=== PATIENT | female | born 1945 | race Caucasian/White ===

== ENCOUNTER 2017-11-26 01:08 | Day surgery (SDC) | payer BC, OTHER ==
[~2017-11-26] VITALS: Ht 166.4 cm; Wt 102.1 kg
[~2017-11-26 01:08] MED LIST: ACYC-58 PO; ALB17R INH; ALBU8.5H IH; ASP325 PO; CALC-515 PO; CALC200 PO; CHOL10005 PO; CHOL200074 PO; DIPH-740 PO; FLUT1DIS27 IH; FLUT1DIS28 IH; HYZAAR; IBUP200C71 PO; KET10 PO; LORA-630 PO; LOSA-51 PO; MULT1CAP41 PO; OMEG500C7 PO; OMEP-114 PO; PER PO; ZOL5 PO
[2017-11-26 06:33] VITALS: BP 135/91
[2017-11-26] MEDS ORDERED: fentaNYL CITR 250 MCG/5 ML AMP ONE (06:55)
[2017-11-26] MEDS ORDERED: MIDAZOLAM 1 MG/1 ML 10 ML ONE (06:57)
[2017-11-26] MEDS ORDERED: NORMOSOL R SOLN(*) 1000 ML BAG 1,000 ML IV PRN (07:00)
[2017-11-26] MEDS ORDERED: LIDOCAINE/SOD BICARB 8.4% SYR ID ONE (07:00)
[2017-11-26 08:31] VITALS: BP 117/75
--- NOTE | 2017-11-26 08:51 | RADIOLOGY IMAGING REPORT ---
FACILITY: [facility] PATIENT NAME: Verna Silveira : 1945 MR: [id number] V: [id number] EXAM DATE: ORDERING PHYSICIAN: TAVO SHELTON TECHNOLOGIST: Location: [facility] - [place] Patient: Verna Silveira : 1945 Visit/Account:[id number] Date of Sevice: 11/26/2017 EXAMINATION: L SPINE W/O CONTRAST INDICATION: Low back pain COMPARISON: April 17, 2015 TECHNIQUE: Multiplane MR imaging was performed through the lumbar spine without contrast. FINDINGS: Vertebral bodies: Normal Conus position/signal: Normal Marrow signal: Minimal degenerative edema surrounds the T11-12 disc space. Minimal degenerative edema along the inferior L3 endplate. Extraspinal structures including psoas muscles/paraspinal soft tissues: Normal L1-2: Normal L2-3: Minimal right posterior disc protrusion is unchanged in size. No canal or lateral recess narrow ing. Mild unchanged right foraminal narrowing. Small unchanged disc protrusion in the inferior aspect of the left foramen results in no left foraminal narrowing. L3-4: Mild unchanged right foraminal narrowing. Mild unchanged left foraminal narrowing, otherwise no rmal. L4-5: Unchanged grade 1 anterolisthesis of L4 on L5. Minimal unchanged disc bulge. Moderate to severe unchanged facet arthropathy. Unchanged ligamentum flavum thickening. Unchanged bilateral lateral rec ess narrowing and unchanged mild canal narrowing. Moderate unchanged left foraminal narrowing, modera te unchanged right foraminal narrowing. L5-S1: Small unchanged disc protrusion. Unchanged posterior disc annular fissure. Moderate unchanged right foraminal narrowing. Severe unchanged left foraminal narrowing. Mild unchanged disc space degen eration. IMPRESSION: 1. No change compared to prior. 2. Unchanged grade 1 anterolisthesis of L4 on L5 secondary to moderate to severe facet arthropathy. 3. Multilevel foraminal narrowing similar to prior, see level by level comments above. 4. Unchanged L4-5 bilateral lateral recess narrowing and mild canal narrowing secondary to the conste llation of findings described above. Report Dictated By: Wali Sharif MD at 11/26/2017 8:40 AM Report E-Signed By: Wali Sharif MD at 11/26/2017 8:48 AM WSN:[id number]
[2017-11-26] MEDS ORDERED: ALBUTEROL/IPRATROPIUM 3 ML NEB ONE (08:56)
[2017-11-26 09:23] VITALS: BP 127/75
[2017-11-26 09:27] VITALS: BP 123/84
== END 2017-11-26 10:00 | disposition home or self-care (01) ==
LOC: OR 01:08
PROVIDERS: ATTEND Orthopaedic Surgery
DX: M48.061 Spinal stenosis, lumbar region without neurogenic claudication (principal)
CPT/HCPCS: 72148; 94640; 94667; J2250; J3010; J7620; 99281

== ENCOUNTER 2018-08-24 16:49 | Emergency (ER) | payer BC ==
[2018-06-17 11:27] VITALS: Wt 95.3 kg
[~2018-08-24 16:49] MED LIST changes: +IBUP-136 PO; -IBUP200C71 PO
--- NOTE | 2018-08-24 16:53 | ER Report ---
History and Physical Time Seen By MD: 16:52 HPI/ROS CHIEF COMPLAINT: Nausea, diarrhea. HISTORY OF PRESENT ILLNESS: This is a 73-year-old female who presents to emergency department for nausea and diarrhea. Patient states that [place] she had aches and chills, follow-up with her primary care provider, was noted to have a urinary tract infection, was placed on cephalexin, has been taking her medications since, then last night developed nausea and diffuse diarrhea, patient states that she's had persistent diarrhea since, small amount of bright red blood noted on the toilet paper, she states she does have a history of hemorrhoids. No dark or coffee ground appearing stool. She denies chest pain or shortness of breath. No rashes, denies sore throat. REVIEW OF SYSTEMS: Constitutional: As above. Eyes: No discharge. ENT: No sore throat. Cardiovascular: No chest pain, no palpitations. Respiratory: No cough, no shortness of breath. Gastrointestinal: As above. Genitourinary: As above. Musculoskeletal: No back pain. Skin: No rashes. Neurological: No headache. Allergies: Uncoded Allergies: SULFA (Allergy, Intermediate, 06/16/18) Home Meds Active Scripts Promethazine Hcl (PROMETHAZINE HCL) 25 Mg Tablet, 25 MG PO Q8H PRN for NAUSEA/VOMITING, #12 TAB Prov:KATJA ESCAMILLA [facility]- 08/24/18 Ondansetron Hcl (ZOFRAN) 4 Mg Tablet, 4 MG PO Q4-6H PRN for prn, #20 TAB Prov:KATJA ESCAMILLA [facility]- 08/24/18 Reported Medications Cephalexin (KEFLEX) 250 Mg Capsule, 500 MG PO TID, CAPSULE 08/24/18 Calcium Carbonate (TUMS) 200 Mg Tab.chew, 200 MG PO PRN, TAB.CHEW 04/11/15 Ibuprofen (IBUPROFEN) 200 Mg Capsule, 2-3 CAP PO Q6H PRN for PAIN/HEADACHE, CAPSULE 04/11/15 Losartan/Hydrochlorothiazide (LOSARTAN-HCTZ 50-12.5 MG TAB) 1 Each Tablet, 0.5 TAB PO QDAY 05/14/14 Fluticasone/Salmeterol (ADVAIR 100-50 DISKUS) 1 Each Disk.w.dev, 1 EACH IH BID 05/14/14 Albuterol Sulfate 90 Mcg/Act (PROAIR HFA 90 MCG/ACT) 8.5 Gm Hfa.aer.ad, 2 PUFF IH BID PRN for SHORTNESS OF BREATH 05/14/14 Multivitamins W-Minerals (Multivitamin) 1 Cap Capsule, 1 CAP PO, 0 Refills 04/06/08 Zolpidem Tartrate (Ambien) 5 Mg Tab, 5 MG PO HS PRN for INSOMNIA, 0 Refills 04/06/08 Discontinued Reported Medications [place]-3 Fatty Acids (FISH OIL) 500 Mg Capsule, 500 MG PO DAILY, CAPSULE 05/14/14 Diphenhydramine Hcl (BENADRYL) 25 Mg Capsule, 25 MG PO BID, CAPSULE 05/14/14 Past Medical/Surgical History The patient has a past medical and surgical history of angina, irregular heartbeat during , hypertension, obstructive sleep apnea, asthma, GERD, metabolic, right shoulder pain, arthritis, broken toe, back pain, question tick extraction, wears glasses, , appendectomy, depression, anxiety, shoulder surgery, cataract surgery. Reviewed Nurses Notes: Yes Hx Smoking: Yes (SMOKED FOR 2 YEARS) Smoking Status: Former Smoker Exposure to Second Hand Smoke?: No Hx Substance Use Disorder: No Hx Alcohol Use: Yes Constitutional Vital Sign - Last 24 Hours 08/24/18 08/24/18 08/24/18 17:00 17:30 18:00 Pulse 99 89 90 Resp 15 12 B/P (MAP) 149/86 (107) 126/76 (93) 124/70 (88) Pulse Ox 93 93 93 Physical Exam General Appearance: The patient is alert, has no immediate need for airway protection and no signs of toxicity. Eyes: Pupils equal and round no pallor or injection. ENT, Mouth: Mucous membranes are moist. Respiratory: There are no retractions, lungs are clear to auscultation. Cardiovascular: Regular rate and rhythm, no murmurs, clicks or rubs. Gastrointestinal: Abdomen is soft and non tender, no masses, hyperactive bowel sounds. Neurological: Alert and oriented 4. Moving all extremities. Following all commands. No focal neuro deficits. Skin: Warm and dry, no rashes. Musculoskeletal: Neck is supple non tender. Extremities are nontender, nonswollen and have full range of motion. DIFFERENTIAL DIAGNOSIS: After history and physical exam differential diagnosis was considered for nausea and vomiting including but not limited to gastroenteritis, gastritis, appendicitis, and medication side effect. Medical Decision Making Data Points Result Diagram: 08/24/18 1708 08/24/18 1708 Laboratory Hematology Test 08/24/18 16:52 08/24/18 17:08 Urine Color Yellow Urine Clarity Slightly-cloudy Urine pH 5.0 pH (4.8-9.5) Urine Specific Watkins 1.025 Urine Protein Negative mg/dL (NEGATIVE) Urine Glucose (UA) Negative mg/dL (NEGATIVE) Urine Ketones Negative mg/dL (NEGATIVE) Urine Blood Small (NEGATIVE) Urine Nitrite Negative (NEGATIVE) Urine Bilirubin Negative (NEGATIVE) Urine Urobilinogen 2.0 mg/dL (0.2-1.9) Urine Leukocyte Esterase Moderate (NEGATIVE) Urine RBC 3 /HPF (0-2/HPF) Urine WBC 93 /HPF (0-5/HPF) Urine Squamous Epithelial Cells Many /LPF (</=FEW) Urine Renal Epithelial Cells Many /LPF (NONE-FEW) Urine Bacteria Negative /HPF (NONE-FEW) Urine Mucus Few /HPF (NONE-FEW) Red Blood Count 5.49 M/uL (4.17-5.56) Mean Corpuscular Volume 86.0 fL (80.0-96.0) Mean Corpuscular Hemoglobin 29.3 pg (26.0-33.0) Mean Corpuscular Hemoglobin Concent 34.0 g/dL (32.0-36.0) Red Cell Distribution Width 13.9 % (11.5-14.5) Mean Platelet Volume 8.6 fL (7.2-11.1) Neutrophils (%) (Auto) 70.4 % (39.4-72.5) Lymphocytes (%) (Auto) 18.1 % (17.6-49.6) Monocytes (%) (Auto) 7.8 % (4.1-12.4) Eosinophils (%) (Auto) 3.1 % (0.4-6.7) Basophils (%) (Auto) 0.6 % (0.3-1.4) Nucleated RBC Relative Count (auto) 0.2 /100WBC Neutrophils # (Auto) 3.7 K/uL (2.0-7.4) Lymphocytes # (Auto) 1.0 K/uL (1.3-3.6) Monocytes # (Auto) 0.4 K/uL (0.3-1.0) Eosinophils # (Auto) 0.2 K/uL (0.0-0.5) Basophils # (Auto) 0.0 K/uL (0.0-0.1) Nucleated RBC Absolute Count (auto) 0.01 K/uL Sodium Level 141 mmol/L (137-145) Potassium Level 3.4 mmol/L (3.5-5.0) Chloride Level 105 mmol/L (98-107) Carbon Dioxide Level 23 mmol/L (22-31) Blood Urea Nitrogen 15 mg/dl (7-18) Creatinine 0.70 mg/dl (0.52-1.04) Glomerular Filtration Rate Calc > 60.0 Random Glucose 110 mg/dl (75-110) Calcium Level 9.2 mg/dl (8.4-10.2) Total Bilirubin 1.0 mg/dl (0.2-1.3) Aspartate Amino Transf (AST/SGOT) 26 U/L (0-35) Alanine Aminotransferase (ALT/SGPT) 39 U/L (0-56) Alkaline Phosphatase 43 U/L (0-126) Total Protein 7.0 g/dl (6.3-8.2) Albumin 4.1 g/dl (3.5-5.0) Lipase 67 U/L (23-300) Chemistry Test 08/24/18 16:52 08/24/18 17:08 Urine Color Yellow Urine Clarity Slightly-cloudy Urine pH 5.0 pH (4.8-9.5) Urine Specific Watkins 1.025 Urine Protein Negative mg/dL (NEGATIVE) Urine Glucose (UA) Negative mg/dL (NEGATIVE) Urine Ketones Negative mg/dL (NEGATIVE) Urine Blood Small (NEGATIVE) Urine Nitrite Negative (NEGATIVE) Urine Bilirubin Negative (NEGATIVE) Urine Urobilinogen 2.0 mg/dL (0.2-1.9) Urine Leukocyte Esterase Moderate (NEGATIVE) Urine RBC 3 /HPF (0-2/HPF) Urine WBC 93 /HPF (0-5/HPF) Urine Squamous Epithelial Cells Many /LPF (</=FEW) Urine Renal Epithelial Cells Many /LPF (NONE-FEW) Urine Bacteria Negative /HPF (NONE-FEW) Urine Mucus Few /HPF (NONE-FEW) White Blood Count 5.3 k/uL (4.5-11.0) Red Blood Count 5.49 M/uL (4.17-5.56) Hemoglobin 16.1 g/dL (12.0-16.0) Hematocrit 47.2 % (34.0-47.0) Mean Corpuscular Volume 86.0 fL (80.0-96.0) Mean Corpuscular Hemoglobin 29.3 pg (26.0-33.0) Mean Corpuscular Hemoglobin Concent 34.0 g/dL (32.0-36.0) Red Cell Distribution Width 13.9 % (11.5-14.5) Platelet Count 156 K/uL (150-450) Mean Platelet Volume 8.6 fL (7.2-11.1) Neutrophils (%) (Auto) 70.4 % (39.4-72.5) Lymphocytes (%) (Auto) 18.1 % (17.6-49.6) Monocytes (%) (Auto) 7.8 % (4.1-12.4) Eosinophils (%) (Auto) 3.1 % (0.4-6.7) Basophils (%) (Auto) 0.6 % (0.3-1.4) Nucleated RBC Relative Count (auto) 0.2 /100WBC Neutrophils # (Auto) 3.7 K/uL (2.0-7.4) Lymphocytes # (Auto) 1.0 K/uL (1.3-3.6) Monocytes # (Auto) 0.4 K/uL (0.3-1.0) Eosinophils # (Auto) 0.2 K/uL (0.0-0.5) Basophils # (Auto) 0.0 K/uL (0.0-0.1) Nucleated RBC Absolute Count (auto) 0.01 K/uL Glomerular Filtration Rate Calc > 60.0 Calcium Level 9.2 mg/dl (8.4-10.2) Total Bilirubin 1.0 mg/dl (0.2-1.3) Aspartate Amino Transf (AST/SGOT) 26 U/L (0-35) Alanine Aminotransferase (ALT/SGPT) 39 U/L (0-56) Alkaline Phosphatase 43 U/L (0-126) Total Protein 7.0 g/dl (6.3-8.2) Albumin 4.1 g/dl (3.5-5.0) Lipase 67 U/L (23-300) Urinalysis Test 08/24/18 16:52 Urine Color Yellow Urine Clarity Slightly-cloudy Urine pH 5.0 pH (4.8-9.5) Urine Specific Watkins 1.025 Urine Protein Negative mg/dL (NEGATIVE) Urine Glucose (UA) Negative mg/dL (NEGATIVE) Urine Ketones Negative mg/dL (NEGATIVE) Urine Blood Small (NEGATIVE) Urine Nitrite Negative (NEGATIVE) Urine Bilirubin Negative (NEGATIVE) Urine Urobilinogen 2.0 mg/dL (0.2-1.9) Urine Leukocyte Esterase Moderate (NEGATIVE) Urine RBC 3 /HPF (0-2/HPF) Urine WBC 93 /HPF (0-5/HPF) Urine Squamous Epithelial Cells Many /LPF (</=FEW) Urine Renal Epithelial Cells Many /LPF (NONE-FEW) Urine Bacteria Negative /HPF (NONE-FEW) Urine Mucus Few /HPF (NONE-FEW) ED Course/Re-evaluation Clinical Indication for ER IV: Hydration, IV Access ED Course The patient was admitted to room. A history and physical obtained. Differential diagnoses were considered. An IV was turned. A CBC, CMP were obtained. A 1 L normal saline bolus was given, 2. 8 mg IV Zofran.CBC showing H&H 16.1 and 47.2 otherwise unremarkable, chemistry showing potassium 3.4, normal lipase, patient currently being treated for urinary tract infection, urine still consistent with a urinary tract infection. I reviewed the results with the patient's. Patient states she's feeling significantly better after the 2 L of saline and nausea medicine. Patient was sent home with a prescription for Zofran and Phenergan. She will continue taking the antibiotics for her urinary tract infection. She will follow-up with her primary care provider for reevaluation this week. Patient was agreeable with this plan of care and discharged home. We also discussed clear liquid diet and then progressing into a soft bland diet. Decision to Disposition Date: Aug 24, 2018 Decision to Disposition Time: 18:27 Depart Departure Latest Vital Signs Vital Signs Date Time Temp Pulse Resp B/P (MAP) Pulse Ox O2 Delivery O2 Flow Rate FiO2 08/24/18 18:00 90 12 124/70 (88) 93 Impression: Primary Impression: Nausea Additional Impression: Diarrhea Condition: Improved Disposition: HOME OR SELF-CARE Referrals: SARAH LEON (PCP) 5 Days New Scripts Promethazine Hcl (PROMETHAZINE HCL) 25 Mg Tablet 25 MG PO Q8H PRN for NAUSEA/VOMITING, #12 TAB Prov: KATJA ESCAMILLA [facility]- 08/24/18 Ondansetron Hcl (ZOFRAN) 4 Mg Tablet 4 MG PO Q4-6H PRN for prn, #20 TAB Prov: KATJA ESCAMILLA [facility] 08/24/18 Patient Instructions: Acute Diarrhea (ED), Acute Nausea and Vomiting (ED), Shantelle r Liquid Diet (ED) Additional Instructions: No concerning findings on the laboratory studies today. Take Zofran or Phenergan as needed for nausea and vomiting. Clear liquid diet for the next 24-48 hours. Continue with small, frequent sips of water or drinks such as Gatorade. Continue taking the antibiotics as prescribed for your urinary tract infection. Please follow-up with your primary care provider within 5 days for reevaluation. Try to get plenty of rest. Return to the ER for any other concerns or worsening symptoms. This is likely a viral illness causing your nausea and diarrhea, typically these are self-limiting. Problem Qualifiers Additional Impression: Diarrhea Diarrhea type: unspecified type Qualified Codes: R19.7 - Diarrhea, unspecified KATJA ESCAMILLA [facility]- Aug 24, 2018 16:53
[2018-08-24] MEDS ORDERED: CEPH250C37 PO (16:59)
[2018-08-24] MEDS ORDERED: ONDANSETRON 4 MG/2 ML VIAL IVP ONE (17:05)
[2018-08-24] MEDS ORDERED: NS(*) 0.9% 1000 ML BAG 1,000 ML IV ONE ×2 (17:05→17:45)
[2018-08-24 17:16] LABS: PLATELET COUNT, AUTOMATED 156 K/uL (150-450)
[2018-08-24 18:00] VITALS: BP 124/70
[2018-08-24] MEDS ORDERED: PROM-110 PO (18:24)
[2018-08-24] MEDS ORDERED: ONDA4TAB97 PO (18:24)
== END 2018-08-24 18:33 | disposition home or self-care (01) ==
LOC: ER 17:02
DX: R11.0 Nausea (principal); R19.7 Diarrhea, unspecified
CPT/HCPCS: 81001; 83690; 85025; 96361; 96374; 99283; J2405; J7030; 82040; 82247; 82310; 82374; 82435; 82565; 82947; 84075; 84132; 84155; 84295; 84450; 84460; 84520

== ENCOUNTER → 2018-11-24 | Outpatient (CLI) | payer BC ==
[2018-06-17 11:27] VITALS: BMI 36.6
[~2018-11-24] MED LIST changes: +CEPH250C37 PO; +ONDA4TAB97 PO; +PROM-110 PO
--- NOTE | 2018-11-24 09:52 | EKG ---
FACILITY: [facility] - [place] PATIENT NAME: ARTURO CHERY : [id number] MR: [id number] V: [id number] EXAM DATE: ORDERING PHYSICIAN: ALEA STONE TECHNOLOGIST: LASHAY Cordova Reason : PREOP-KNEE Blood Pressure : / mmHG Vent. Rate : 083 BPM Atrial Rate : 083 BPM P-R Int : 114 ms QRS Dur : 094 ms QT Int : 362 ms P-R-T Axes : 034 063 020 degrees QTc Int : 425 ms Normal sinus rhythm Nonspecific ST and T wave abnormality Abnormal ECG No previous ECGs available Confirmed by ALEA PETTY ([id number]) on 11/24/2018 6:19:18 PM Referred By: CHASE Confirmed By:ALEA PETTY
== END ==
LOC: RESP 09:41
PROVIDERS: ATTEND Anesthesiology
DX: Z01.810 Encounter for preprocedural cardiovascular examination (principal); R94.31 Abnormal electrocardiogram [ECG] [EKG]
CPT/HCPCS: 93005

== ENCOUNTER 2018-12-02 20:37 | Emergency (ER) | payer BC ==
[2018-06-17 11:27] VITALS: Wt 97.1 kg
--- NOTE | 2018-12-02 20:48 | ER Report ---
History and Physical Time Seen By MD: 20:48 HPI/ROS CHIEF COMPLAINT: leg pain and swelling HISTORY OF PRESENT ILLNESS: This is a 73 year old female. She is having some pain and swelling in her right leg. Had noticed discomfort and pain last night and through the day has been difficult. Has some 'lumpiness' to the leg as well as some swelling compared to the left side. No shortness of breath. No chest pain. Had been doing some increased yard work on , wanted to get some poe planted prior to her knee surgery coming up this week. Perhaps overused the leg. No known injury. Normal sensation in the leg. No fevers or chills noted. Allergies: Coded Allergies: Sulfa (Sulfonamide Antibiotics) (Verified Allergy, Intermediate, "SWELLING", 12/02/18) Home Meds Reported Medications Diphenhydramine Hcl (BENADRYL ALLERGY) 25 Mg Tablet, 25 MG PO Q6-8H PRN for ALLERGY SYMPTOMS, TAB 12/02/18 Cyclosporine (RESTASIS) 1 Each Droperette, 1 DROP OU BID 12/02/18 Calcium Carbonate (TUMS) 200 Mg Tab.chew, 200 MG PO PRN, TAB.CHEW 04/11/15 Ibuprofen (IBUPROFEN) 200 Mg Capsule, 2-3 CAP PO Q6H PRN for PAIN/HEADACHE, CAPSULE 04/11/15 Losartan/Hydrochlorothiazide (LOSARTAN-HCTZ 50-12.5 MG TAB) 1 Each Tablet, 0.5 TAB PO QDAY 05/14/14 Fluticasone/Salmeterol (ADVAIR 100-50 DISKUS) 1 Each Disk.w.dev, 1 EACH IH BID 05/14/14 Albuterol Sulfate 90 Mcg/Act (PROAIR HFA 90 MCG/ACT) 8.5 Gm Hfa.aer.ad, 2 PUFF IH BID PRN for SHORTNESS OF BREATH 05/14/14 Multivitamins W-Minerals (Multivitamin) 1 Cap Capsule, 1 CAP PO, 0 Refills 04/06/08 Zolpidem Tartrate (Ambien) 5 Mg Tab, 5 MG PO HS PRN for INSOMNIA, 0 Refills 04/06/08 Discontinued Reported Medications Cephalexin (KEFLEX) 250 Mg Capsule, 500 MG PO TID, CAPSULE 08/24/18 Discontinued Scripts Promethazine Hcl (PROMETHAZINE HCL) 25 Mg Tablet, 25 MG PO Q8H PRN for NAUSEA/VOMITING, #12 TAB Prov:KATJA ESCAMILLA [employer] 08/24/18 Ondansetron Hcl (ZOFRAN) 4 Mg Tablet, 4 MG PO Q4-6H PRN for prn, #20 TAB Prov:KATJA ESCAMILLA [facility] 08/24/18 Reviewed Nurses Notes: Yes Hx Smoking: Yes (SMOKED FOR 2 YEARS) Smoking Status: Former Smoker Exposure to Second Hand Smoke?: No Hx Substance Use Disorder: No Hx Alcohol Use: Yes Constitutional Vital Sign - Last 24 Hours 12/02/18 12/02/18 12/02/18 12/02/18 20:48 20:49 20:52 21:00 Temp 98.2 Pulse 88 92 Resp 18 B/P (MAP) 145/85 (105) 145/85 132/59 (83) Pulse Ox 93 93 O2 Delivery Room Air 12/02/18 12/02/18 12/02/18 12/02/18 21:07 21:22 21:30 21:37 Pulse 91 86 87 B/P (MAP) 120/52 (74) Pulse Ox 92 94 88 12/02/18 12/02/18 12/02/18 12/02/18 21:52 21:57 22:00 22:12 Pulse 89 92 89 B/P (MAP) 110/77 (88) Pulse Ox 92 92 91 12/02/18 12/02/18 12/02/18 12/02/18 22:27 22:30 22:42 22:50 Pulse 90 84 B/P (MAP) 117/60 (79) 124/72 (89) Pulse Ox 90 91 Physical Exam General Appearance: Alert, no acute distress. Respiratory: Lungs clear, breathing easily. Cardiac: regular rate and rhythm, normal peripheral perfusion with pulses and cap refill. Neuro: Normal sensation. Musculoskeletal: Extremities have full range of motion. Has some tenderness in calf with palpation, none in the thigh. Some palpable varicose veins, but no solid veins noted. Skin: No rashes or lesions. No redness. Slight warmth compared to left leg, but very minimal in comparison. DIFFERENTIAL DIAGNOSIS: After history and physical exam differential diagnosis was considered for leg pain and swelling. Could be overuse, but will look for signs of inflammation, infection or deep vein thrombosis. Medical Decision Making Data Points Result Diagram: 12/02/18210412/02/182104 Laboratory Hematology Test 12/02/18 21:05 Red Blood Count 5.09 M/uL (4.17-5.56) Mean Corpuscular Volume 84.6 fL (80.0-96.0) Mean Corpuscular Hemoglobin 29.2 pg (26.0-33.0) Mean Corpuscular Hemoglobin Concent 34.5 g/dL (32.0-36.0) Red Cell Distribution Width 14.4 % (11.5-14.5) Mean Platelet Volume 8.6 fL (7.2-11.1) Neutrophils (%) (Auto) 45.2 % (39.4-72.5) Lymphocytes (%) (Auto) 39.9 % (17.6-49.6) Monocytes (%) (Auto) 6.9 % (4.1-12.4) Eosinophils (%) (Auto) 6.6 % (0.4-6.7) Basophils (%) (Auto) 1.4 % (0.3-1.4) Nucleated RBC Relative Count (auto) 0.0 /100WBC Neutrophils # (Auto) 2.3 K/uL (2.0-7.4) Lymphocytes # (Auto) 2.0 K/uL (1.3-3.6) Monocytes # (Auto) 0.3 K/uL (0.3-1.0) Eosinophils # (Auto) 0.3 K/uL (0.0-0.5) Basophils # (Auto) 0.1 K/uL (0.0-0.1) Nucleated RBC Absolute Count (auto) 0.00 K/uL Erythrocyte Sedimentation Rate 6 mm/HOUR (0-30) Sodium Level 141 mmol/L (137-145) Potassium Level 3.8 mmol/L (3.5-5.0) Chloride Level 107 mmol/L (98-107) Carbon Dioxide Level 23 mmol/L (22-31) Blood Urea Nitrogen 17 mg/dl (7-18) Creatinine 0.70 mg/dl (0.52-1.04) Glomerular Filtration Rate Calc > 60.0 Random Glucose 104 mg/dl (75-110) Calcium Level 9.8 mg/dl (8.4-10.2) Total Bilirubin 0.4 mg/dl (0.2-1.3) Aspartate Amino Transf (AST/SGOT) 27 U/L (0-35) Alanine Aminotransferase (ALT/SGPT) 41 U/L (0-56) Alkaline Phosphatase 65 U/L (0-126) C-Reactive Protein < 0.5 mg/dl (<1.0) Total Protein 7.1 g/dl (6.3-8.2) Albumin 4.3 g/dl (3.5-5.0) Chemistry Test 12/02/18 21:05 White Blood Count 5.0 k/uL (4.5-11.0) Red Blood Count 5.09 M/uL (4.17-5.56) Hemoglobin 14.8 g/dL (12.0-16.0) Hematocrit 43.0 % (34.0-47.0) Mean Corpuscular Volume 84.6 fL (80.0-96.0) Mean Corpuscular Hemoglobin 29.2 pg (26.0-33.0) Mean Corpuscular Hemoglobin Concent 34.5 g/dL (32.0-36.0) Red Cell Distribution Width 14.4 % (11.5-14.5) Platelet Count 192 K/uL (150-450) Mean Platelet Volume 8.6 fL (7.2-11.1) Neutrophils (%) (Auto) 45.2 % (39.4-72.5) Lymphocytes (%) (Auto) 39.9 % (17.6-49.6) Monocytes (%) (Auto) 6.9 % (4.1-12.4) Eosinophils (%) (Auto) 6.6 % (0.4-6.7) Basophils (%) (Auto) 1.4 % (0.3-1.4) Nucleated RBC Relative Count (auto) 0.0 /100WBC Neutrophils # (Auto) 2.3 K/uL (2.0-7.4) Lymphocytes # (Auto) 2.0 K/uL (1.3-3.6) Monocytes # (Auto) 0.3 K/uL (0.3-1.0) Eosinophils # (Auto) 0.3 K/uL (0.0-0.5) Basophils # (Auto) 0.1 K/uL (0.0-0.1) Nucleated RBC Absolute Count (auto) 0.00 K/uL Erythrocyte Sedimentation Rate 6 mm/HOUR (0-30) Glomerular Filtration Rate Calc > 60.0 Calcium Level 9.8 mg/dl (8.4-10.2) Total Bilirubin 0.4 mg/dl (0.2-1.3) Aspartate Amino Transf (AST/SGOT) 27 U/L (0-35) Alanine Aminotransferase (ALT/SGPT) 41 U/L (0-56) Alkaline Phosphatase 65 U/L (0-126) C-Reactive Protein < 0.5 mg/dl (<1.0) Total Protein 7.1 g/dl (6.3-8.2) Albumin 4.3 g/dl (3.5-5.0) EKG/Imaging Imaging US VENOUS LOWER EXT RT HISTORY: Right leg pain and swelling. COMPARISON STUDIES: None. TECHNIQUE: Grayscale compression, duplex, and color Doppler interrogation of the right lower extremity deep veins from common femoral vein to proximal calf was performed. The greater saphenous vein in the ipsilateral proximal thigh was evaluated using similar technique. FINDINGS: RIGHT LOWER EXTREMITY COMMON FEMORAL VEIN: Normal. DEEP FEMORAL VEIN: Normal. FEMORAL VEIN: Normal. POPLITEAL VEIN: Normal. VISUALIZED DEEP CALF VEINS: Normal. GREATER SAPHENOUS VEIN IN THE PROXIMAL THIGH: Normal. On the longitudinal views, there is echogenic material on the image in this location, but the sports book board attendant reports that this was artifact. POPLITEAL FOSSA: Normal. IMPRESSION: 1. There is no deep venous thrombosis of the right lower extremity. Report Dictated By: Nely Hill at 12/02/2018 10:03 PM ED Course/Re-evaluation ED Course Labs unremarkable. Ultrasound negative for DVT. Reviewed this with the patient. Unsure exact cause, undifferentiated leg pain, most likely due to overuse the other day. Recommended Tylenol as needed for pain, Compression with RC wrap and use of heat and ice. She will contact her orthopedic surgeon on Wednesday. Decision to Disposition Date: Dec 02, 2018 Decision to Disposition Time: 22:42 Depart Departure Latest Vital Signs Vital Signs Date Time Temp Pulse Resp B/P (MAP) Pulse Ox O2 Delivery O2 Flow Rate FiO2 12/02/18 22:50 124/72 (89) 12/02/18 22:42 84 91 12/02/18 20:49 98.2 18 Room Air Impression: Primary Impression: Musculoskeletal pain Condition: Improved Disposition: HOME OR SELF-CARE Referrals: SARAH LEON (PCP) Patient Instructions: Musculoskeletal Pain (ED) Additional Instructions: Labs and ultrasound were normal tonight. Tylenol as needed for pain You can try using heat or ice as needed for pain. An RC wrap can be used for compression to help reduce swelling. Rest the injured area, keep it elevated while at rest. Relative rest, gentle activities and range of motion encouraged. Call and arrange follow-up with your orthopedic surgeon. BAMBI SNELL MD Dec 02, 2018 20:48
[2018-12-02] MEDS ORDERED: DIPH-741 PO (20:54)
[2018-12-02] MEDS ORDERED: CYCL1DRO6 OU (20:54)
[2018-12-02 21:21] LABS: PLATELET COUNT, AUTOMATED 192 K/uL (150-450)
--- NOTE | 2018-12-02 22:24 | RADIOLOGY IMAGING REPORT ---
FACILITY: [facility] [place] PATIENT NAME: Verna Silveira : 1945 MR: [id number] V: [id number] EXAM DATE: ORDERING PHYSICIAN: BAMBI SNELL TECHNOLOGIST: Location: [facility] Patient: Verna Silveira : 1945 Visit/Account:[id number] Date of Sevice: 12/02/2018 US VENOUS LOWER EXT RT HISTORY: Right leg pain and swelling. COMPARISON STUDIES: None. TECHNIQUE: Grayscale compression, duplex, and color Doppler interrogation of the right lower extremit y deep veins from common femoral vein to proximal calf was performed. The greater saphenous vein in t he ipsilateral proximal thigh was evaluated using similar technique. FINDINGS: RIGHT LOWER EXTREMITY COMMON FEMORAL VEIN: Normal. DEEP FEMORAL VEIN: Normal. FEMORAL VEIN: Normal. POPLITEAL VEIN: Normal. VISUALIZED DEEP CALF VEINS: Normal. GREATER SAPHENOUS VEIN IN THE PROXIMAL THIGH: Normal. On the longitudinal views, there is echogenic m aterial on the image in this location, but the kiln tester reports that this was artifact. POPLITEAL FOSSA: Normal. IMPRESSION: 1. There is no deep venous thrombosis of the right lower extremity. Report Dictated By: Nely Hill at 12/02/2018 10:03 PM Report E-Signed By: Nely Hill at 12/02/2018 10:20 PM WSN:[id number]
[2018-12-02 22:50] VITALS: BP 124/72
[2018-12-05] MEDS ORDERED: FLUT1DIS28 IH (10:54)
== END 2018-12-02 22:57 | disposition home or self-care (01) ==
LOC: ER 20:51
DX: M79.604 Pain in right leg (principal)
CPT/HCPCS: 82040; 82247; 82310; 82374; 82435; 82565; 82947; 84075; 84132; 84155; 84295; 84450; 84460; 84520; 85025; 85651; 86140; 99284

== ENCOUNTER → 2019-02-14 | Outpatient (CLI) | payer BC, MEDICARE ==
[2018-12-13 10:51] VITALS: BMI 35.4
[~2019-02-14] MED LIST changes: +ASPI-764 PO; +CYCL1DRO6 OU; +DIPH-741 PO; +OXYC5CAP21 PO; +TRAM-420 PO
--- NOTE | 2019-02-14 15:15 | RADIOLOGY IMAGING REPORT ---
FACILITY: [facility] PATIENT NAME: ARTURO CHERY : [id number] MR: [id number] V: [id number] EXAM DATE: ORDERING PHYSICIAN: SARAH LEON TECHNOLOGIST: Racquel Brannon PROCEDURE: BILATERAL DIGITAL SCREENING MAMMOGRAM WITH CAD ASSISTED INTERPRETATION & 3D TOMOSYNTHESIS REASON FOR STUDY: Screening. FAMILY HISTORY OF BREAST CANCER: Mother at age 64. BREAST PROCEDURES/TREATMENTS: None. COMPARISON: 04/20/14. VIEWS OBTAINED: Bilateral 2D & 3D full field CC & MLO projections. BREAST DENSITY: There are scattered areas of fibroglandular density throughout the breasts. MAMMOGRAM FINDINGS: The parenchymal pattern has remained stable allowing for difference in mammographic technique & patient positioning. IMPRESSION: BIRADS 1: Negative. DIAGNOSTIC CATEGORY 1--NEGATIVE. RECOMMENDATIONS: ROUTINE MAMMOGRAM AND CLINICAL EVALUATION. Dictated by: Martina Shay M.D. on 02/14/2019 at 14:29 Transcribed by: KELLY on 02/14/2019 at 14:34 Approved by: Martina Shay M.D. on 02/14/2019 at 15:10 [facility]
== END ==
LOC: MAMO 13:50
PROVIDERS: ATTEND Nurse Practitioner Psychiatric/Mental Health
DX: Z12.31 Encounter for screening mammogram for malignant neoplasm of breast (principal)
CPT/HCPCS: 77063; 77067